=== PATIENT | male | born 1950 | race Caucasian/White ===

== ENCOUNTER 2019-02-10 08:51 | Inpatient (IN) | payer BC, MEDICARE ==
--- NOTE | 2019-02-03 12:52 | HP ---
AMENDED REPORT NOW INCLUDES DESIGNATED COSIGNER - ESIGNED BEFORE ADJUSTMENTS PREOPERATIVE HISTORY AND PHYSICAL: DATE OF ADMISSION: 02/10/19 DATE OF OFFICE VISIT: ATTENDING PHYSICIAN: Dr. Tess Jo.* (DICTATED BY JAMES YOUNG) SURGERY TO BE PERFORMED: Right total knee arthroplasty. CHIEF COMPLAINT: Right knee pain. HISTORY OF PRESENT ILLNESS: Mr. Stevens is a 68-year-old male with over 3 years of increasingly severe right knee pain. He has difficulty walking for more than 1 block. He has difficulty ambulating on stairs and uneven surfaces. Antiinflammatories, rest, and elevation have helped this pain somewhat. He has had cortisone injections and has worn a brace without relief of pain. He now elects to proceed with right total knee arthroplasty. PAST MEDICAL HISTORY: Significant for hypertension, high cholesterol, osteoarthritis, type 2 diabetes, morbid obesity. PAST SURGICAL HISTORY: He has had a TURP, appendectomy, hernia repair, cervical spine surgery, and partial parathyroid removal. MEDICATIONS: 1. Metformin HCl ER 50 mg 2 tablets b.i.d. 2. Humalog KwikPen 200 units per mL t.i.d. with meals. 3. Atorvastatin 20 mg daily. 4. Finasteride 5 mg 1 p.o. daily. 5. Invokana 300 mg 1 p.o. daily. 6. Levemir FlexTouch 100 units per mL, administered 110 units subcu daily. 7. Aspirin 81 mg daily. 8. CoQ10 supplement 100 mg daily. 9. Vitamin D3 at 5000 International Units daily. 10. Irbesartan 300 mg daily. 11. Amlodipine 5 mg p.o. daily. ALLERGIES: To PENICILLIN, which caused rash and hives. FAMILY HISTORY: Significant for hypertension and cancer. 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 Remote history of tobacco use, quit 25 years ago. Denies use of alcohol or recreational drug use. REVIEW OF SYSTEMS: Reviewed with the patient today. Denies recent loss of consciousness, lightheadedness, dizziness, shortness of breath, chest pain, palpitations, gastrointestinal and genitourinary discomfort. No neurologic symptoms. PHYSICAL EXAMINATION GENERAL: The patient is alert and oriented x3, in no acute distress, pleasant, cooperative. VITAL SIGNS: Height 69.50 inches, weight 285. Pulse 80, BP 142/84. HEENT: PERRLA. EOMI. NECK: Supple. Nontender. LUNGS: Clear to auscultation without wheeze. HEART: Regular rate and rhythm. No murmur auscultated. ABDOMEN: Nontender. Normoactive bowel sounds x4 quadrant. EXTREMITIES: Upper extremities within normal limits. Right knee: His skin is clear without excoriations or open lesions. He has a moderate effusion to the right knee, 15 degrees to 120 degrees flexion with patellofemoral crepitus and pain. There is a varus deformity. There is tenderness along the medial joint line. There is no gross varus or valgus instability. Mild pitting edema is noted at the ankle. He has active dorsiflexion and plantar flexion. Full sensation to light touch, 2+ dorsalis pedis pulse. ASSESSMENT: Advanced osteoarthritis of the right knee, medial and patellofemoral compartments. PLAN: The patient has failed conservative management and elects to proceed with right total knee arthroplasty. He is scheduled for surgical intervention with Dr. Tess Jo at [facility] [place] on 02/10/19. He has been cleared by his primary care provider and his kinesiology internship for surgery. He will follow up in the office in roughly 10 to 14 days postoperatively. JAMES YOUNG [id number]/[facility] #: [id number] MTDD
[~2019-02-10 08:51] MED LIST: Acetaminophen TAB* 325 MG PO ONE; Buffered Lidocaine 1% SYRIN* 1 ML/SYRINGE INTRADERM ONE; Famotidine TAB* 20 MG PO ONE; Gabapentin CAP(*) 300 MG PO ONE; Lactated Ringers 1000 ML Bag* 1,000 ML IV SCH; Metoclopramide IV* 5 MG/ML 2 ML VIAL IV SLOW PU ONE; Tranexamic Acid 1,000 MG in NS 0.9% 50 ML* (outpatient use) IV SCH; celeCOXIB CAP* 200 MG PO ONE
[2019-02-10] MEDS ORDERED: Metoclopramide IV* 5 MG/ML 2 ML VIAL ONE (09:24)
[2019-02-10] MEDS ORDERED: Famotidine TAB* 20 MG ONE (09:25)
[2019-02-10] MEDS ORDERED: celeCOXIB CAP* 200 MG ONE (09:25)
[2019-02-10] MEDS ORDERED: Gabapentin CAP(*) 300 MG ONE (09:25)
[2019-02-10] MEDS ORDERED: Acetaminophen TAB* 325 MG ONE (09:25)
[2019-02-10] MEDS ORDERED: Buffered Lidocaine 1% SYRIN* 1 ML/SYRINGE INTRADERM ONE (09:26)
[2019-02-10] MEDS ORDERED: Tranexamic Acid 1,000 MG/10 ML SDV ONE (09:26)
[2019-02-10] MEDS ORDERED: Clindamycin 900 MG IVPREMIX(* 900 MG/50 ML SDV IV ONE (09:26)
[2019-02-10] MEDS ORDERED: fentaNYL* 50 MCG/ML 2 ML VIAL (100 MCG VIAL) ONE (09:40)
[2019-02-10] MEDS ORDERED: Midazolam* 1 MG/ML 2 ML VIAL (2 MG) ONE (09:40)
[2019-02-10] MEDS ORDERED: ROPIVACAINE 5 MG/ML 30 ML BTL (0.5%) ONE ×2 (10:29→10:47)
[2019-02-10] MEDS ORDERED: Lidocaine 1% MPF ** 5 ML VIAL ONE (10:47)
[2019-02-10] MEDS ORDERED: Ropivacaine (OR use only) 2 MG/ML 10 ML ONE (10:47)
[2019-02-10] MEDS ORDERED: KETAMINE HCL* 50 MG/ML 10 ML VIAL ONE (12:00)
[2019-02-10] MEDS ORDERED: Propofol* 10 MG/ML 20 ML BTL ONE ×4 (12:16→13:41)
[2019-02-10] MEDS ORDERED: Ondansetron INJ* 2 MG/ML VIAL IV PRN ×2 (13:05→14:37)
[2019-02-10] MEDS ORDERED: oxyCODONE TAB* 5 MG TAB PO PRN (13:05)
[2019-02-10] MEDS ORDERED: fentaNYL* 50 MCG/ML 2 ML VIAL (100 MCG VIAL) IV PRN (13:05)
[2019-02-10] MEDS ORDERED: Naloxone* 0.4 MG/ML 1 ML VIAL IV PRN (13:05)
[2019-02-10] MEDS ORDERED: Ketorolac INJ* 30 MG/ML 1 ML VIAL IV PRN (13:05)
[2019-02-10] MEDS ORDERED: DiMENhydriNATE IV* 50 MG/ML VIAL IV PUSH PRN (13:05)
[2019-02-10] MEDS ORDERED: HYDROmorphone INJ1* 1 MG/ML SYRINGE IV PRN (13:05)
[2019-02-10] MEDS ORDERED: Acetaminophen IV 1GM/100ML * 1,000 MG/100 ML VIAL IVPB ONE (13:05)
[2019-02-10] MEDS ORDERED: diPHENhydraMINE PO* 25 MG PO PRN (14:37)
[2019-02-10] MEDS ORDERED: Cyclobenzaprine TAB* 10 MG PO PRN (14:37)
[2019-02-10] MEDS ORDERED: Morphine 4 MG/ML VIAL (1 ml) 4 MG/ML VIAL IV PRN (14:37)
[2019-02-10] MEDS ORDERED: diPHENhydraMINE IV* 50 MG/ML 1 ml VIAL (BENADRYL) IV PRN (14:37)
[2019-02-10] MEDS ORDERED: Magnesium Hydroxide LIQ* 30 ML UDC PO PRN (14:37)
[2019-02-10] MEDS ORDERED: Bisacodyl SUPP* 10 MG SUPP PR PRN (14:37)
[2019-02-10] MEDS ORDERED: Polyethylene Glycol 3350* 17 GM PACKET PO PRN (14:37)
[2019-02-10] MEDS ORDERED: oxyCODONE/Acetamin 5/325 MG* TAB PO PRN (14:49)
[2019-02-10] MEDS ORDERED: Lactated Ringers 1000 ML Bag* 1,000 ML IV SCH (15:00)
[2019-02-10] MEDS ORDERED: Dextrose 50% VIAL 50 ml IV PUSH PRN (15:31)
--- NOTE | 2019-02-10 16:46 | PN ---
Progress Note - Progress Note Date of Service: 02/10/19 Note: Pt seen at bedside, pain is well controlled. Denies CP, SOB, dizziness, nausea. Dressing CDI, DF/PF intact, sensation intact to light touch distally.
[2019-02-10] MEDS ORDERED: INSULIN LISPRO SUBCUT SCH (17:00)
[2019-02-10] MEDS: oxyCODONE/Acetamin 5/325 MG* TAB PO PRN (17:22)
[2019-02-10] MEDS: Insulin LISPRO* 1 UNITS UNIT SUBCUT SCH (17:44)
--- NOTE | 2019-02-10 17:58 | OP ---
Operative Report - Blank - Operative Report Date of Operation: 02/10/19 Note: LETTY NASH 1950 Date of Surgery: 02/10/19 Tess Jo MD Hammerer Helper: Kenny RAMIREZ did help throughout the procedure with preparation of the knee, wound retraction, manipulation of the knee, and wound closure. Anesthesiologist: Freddy Weller MD Anesthesia Type: Spinal Preoperative Diagnosis: Right severe degenerative osteoarthritis of the knee Postoperative Diagnosis: As above Procedure Performed: Right Total Knee Arthroplasty Tourniquet time: 54 minutes Complications: None Specimen: Bone and cartilage from the right knee joint sent to pathology. Hardware Used: Cemented Brown [employer] Nephew total knee hardware was used - For the femur a size 7 right oxinium legion posterior stabilized femoral component, for the tibia a size 7 right manjit II tibial baseplate, for the insert a size 9mm 7-8 posterior stabilized articular polyethylene insert, and for the patella a size 35 3-peg all poly patella. Brief History/Indication: LETTY NASH was known in clinic and had a history of severe right knee pain and swelling. He failed conservative treatment with anti- inflammatories, pain pills, intra-articular injections and physical therapy. He elected to undergo right total knee arthroplasty due to continued pain and decreased quality of life. Radiographs showed severe end stage osteoarthritis of the knee with bone on bone contact. Informed consent was obtained from the patient. He understood the risks of surgery included but were not limited to: bleeding, infection, damage to nearby structures, intraoperative fracture, nerve palsy, failure of the hardware, early loosening, knee stiffness or loss of motion, anesthesia complications, stroke, heart attack, blood clot and . He wished to proceed. Intra-Operative Findings: Intraoperatively the patient was noted to have severe loss of cartilage in all 3 compartments of the knee. He had a suprapatellar pouch large loose body and extensive osteophyte formation. Description of the Procedure: LETTY NASH was identified in the preanesthesia unit. His right knee was marked as the correct operative side. Informed consent was signed and placed in the chart. The patient was taken to the operating room and placed under anesthesia without complication. A lucero catheter was placed. A tourniquet was placed on the right thigh. The right lower extremity was prepped and draped in the usual sterile fashion. Preoperative time-out was made to correctly identify the patient, side and site. Appropriate intraoperative antibiotics were given within one hour of incision. Tourniquet was inflated. A midline incision was made and carried sharply down to the extensor mechanism. A new 10 blade was used to make a standard medial parapatellar arthrotomy. The patella was subluxed laterally. Electrocautery was used to dissect soft tissue off the superomedial tibia to the midsagittal plane. The knee was flexed up. The anterior horn of the lateral meniscus and the ACL were sharply incised. A drill was used to enter the distal femur. The intramedullary distal femoral cutting guide was pinned on the distal femur. The oscillating saw was used to make the distal femoral cut. The external rotation guide was pinned on the distal femur and the distal femur was sized to a size 7. The size 7 multi-cutting jig was pinned on the distal femur. The oscillating saw was used to make the appropriate 4 chamfer cuts. Next the PCL was completely released. The extramedullary tibial cutting guide was pinned on the proximal tibia and the oscillating saw was used to make the proximal tibial cut perpendicular to the mechanical axis of the tibia. The bone was carefully removed. The knee was brought out into full extension. The spacer block was placed and had excellent fit with the knee in full extension. The medial and lateral ligaments were well balanced. The flexion and extension gaps were well balanced. The knee was flexed up. Lamina tableau developer was placed both medially and laterally. Any remaining meniscus was removed with electrocautery. Curved osteotome was used to remove any posterior osteophytes. The tibial tray and drop wendy were placed and confirmed a satisfactory tibial cut. The size 7 right femoral trial was impacted onto the distal femur. This trial had excellent fit and stability. The box for the posterior stabilized implant was prepared using a box cut osteotome and a reamer. Next a tibial tray trial and 9 mm insert trial was placed. The knee was taken through a range of motion and had full extension to 130 degrees of flexion. Patellofemoral tracking was satisfactory. The patella was inverted and sized to a size 35. Three peg holes were drilled through the size 35 drill guide. The trial patella was placed and the knee was taken through a range of motion. There was satisfactory patellofemoral tracking. All trials were removed. The tibia was subluxed anteriorly and sized to a size 7. The proximal tibial was prepared with a size 7 keel punch. All bony cut surfaces were irrigated with sterile saline and dried. Final implants were cemented into place starting with the tibia, followed by the femur, and last the patella. A 9 mm insert trial was placed and the knee was brought into full extension. Tourniquet was turned down and the knee was copiously irrigated with sterile saline. Electrocautery was used to obtain meticulous hemostasis. Once the cement had fully cured, the insert trial was removed. Any excess cement was removed from around the hardware and capsule. Final insert chosen was a 9 mm posterior stabilized Manjit II articular insert size 7-8. Stability of the insert was checked and noted to be stable. The extensor mechanism was closed using number 1 vicryls. The rest of the incision was closed in a layered fashion using 0 and 2-0 vicryls. The skin was closed using 3-0 nylon suture. Sterile xeroform, 4x4s and webril were used to cover the incision. Charbel wrap and cold pack were used to cover the dressings. The patients anesthesia was reversed without difficulty. He was taken to the PACU in stable condition. Intended weight-bearing will be as tolerated.
--- NOTE | 2019-02-10 18:22 | CONS ---
CC: Dr. Delatorre; Dr. Jo; JAMES Coelho * CONSULTATION REPORT: DATE OF CONSULT: 02/10/19 PRIMARY CARE PROVIDER: Dr. Delatorre. ORTHOPEDIC SURGEON: Dr. Jo. REQUESTING PROVIDER IN CONSULTATION: JAMES Coelho. ATTENDING PHYSICIAN: Dr. Aranda (dictated by JAMES Vargas). REASON FOR CONSULTATION: Co-medical management. HISTORY OF PRESENT ILLNESS/HOSPITAL COURSE: I refer you to Naomi Max's history and physical dictated on 02/03/19 for full and complete details, but in short, Mr. Stevens is a 68-year-old male with a past medical history of diabetes, hypertension, hyperlipidemia, and osteoarthritis who presented to [facility] today for an elective right total knee arthroplasty having failed conservative therapy. He is seen postoperatively in the PACU. He is complaining of drowsiness and fatigue. He denies chest pain, shortness of breath, vision changes, headache. He denies pain in the knees, stating that he has decreased sensation to bilateral lower extremities due to nerve block. He denies abdominal pain, nausea, vomiting, diarrhea. He denies numbness and tingling in the extremities. PAST MEDICAL HISTORY: 1. Diabetes mellitus. 2. Hypertension. 3. Hyperlipidemia. 4. BPH. 5. Obesity, BMI of 41.3. 6. Osteoarthritis. PAST SURGICAL HISTORY: TURP, appendectomy, hernia repair x2, partial parathyroidectomy, cervical spine. HOME MEDICATIONS: 1. Amlodipine 5 mg p.o. daily. 2. Aspirin 81 mg p.o. daily. 3. Atorvastatin 20 mg p.o. q.p.m. 4. Canagliflozin 300 mg p.o. daily. 5. Vitamin D3 cap 5000 units p.o. daily. 6. Finasteride 5 mg p.o. daily. 7. Insulin detemir 50 units subcu q.a.m., 60 units at bedtime. 8. Insulin lispro sliding scale 16 to 24 units subcu t.i.d. with meals. 9. Irbesartan 300 mg p.o. daily. 10. Metformin 1000 mg p.o. b.i.d. 11. CoQ10 at 100 mg p.o. daily. DRUG ALLERGIES: PENICILLIN, hives. FAMILY HISTORY: Father, hypertension, due to lung cancer. Mother, dementia. Maternal grandmother, [place] at age 60. Paternal grandmother during childbirth. Paternal grandfather, melanoma, brain tumor. SOCIAL HISTORY: The patient states that he quit smoking approximately 25 years ago. Prior to that, he smoked less than a pack per day for approximately 10 years. He does not drink alcohol. He is a food crops farm hand. He lives with his ; he has 4 children and 10 grandchildren. In the event that he is unable to make his own medical decisions, he has appointed his daughter and healthcare proxy, Starr Barba, to be his surrogate decision maker. REVIEW OF SYSTEMS: A 10-point review of systems has been performed and all the pertinent positives and negatives are in the HPI. All other systems are negative. PHYSICAL EXAMINATION: General: Mr. Stevens is a well-developed, well-nourished, obese, older white male who is sitting up in bed. He appears groggy, but is cooperative and appropriate and awake. Vital Signs: Temperature 97.2 temporal , heart rate 67, respiratory rate 17, oxygen saturation 97% on 2 L O2, blood pressure 139/82. HEENT: PERRL. EOMI. Nonicteric sclerae. Hearing grossly intact. Oral mucous membranes are dry. Cardiovascular: Regular rate and rhythm with S1, S2 present without murmurs, rubs, clicks, or gallops. There is no JVD. There is no peripheral edema. Radial and pedal pulses are palpable. Respiratory: Symmetrical chest expansion without use of accessory muscles. Lungs: Clear to auscultation bilaterally without rhonchi, wheezes, or rubs. There is no clubbing or cyanosis distally. Abdomen: Obese. Bowel sounds in all quadrants. The abdomen is soft. There is no tenderness to palpation. Musculoskeletal: The patient is able to move all of his extremities. The right knee has a clean, dry, and intact dressing with cryo unit in place. Neuro : The patient is awake. He is alert and oriented x3 with cranial nerves grossly intact. He again is able to move all of his extremities. He has decreased sensation to bilateral lower extremities. ASSESSMENT AND PLAN: Mr. Stevens is a 68-year-old male with a past medical history of diabetes, hypertension, hyperlipidemia who presented to [facility] today for an elective right total knee arthroplasty. The patient will be admitted inpatient for: 1. Right total knee arthroplasty. Management per orthopedics. 2. Diabetes mellitus. The patient is on detemir 50 a.m., 60 p.m., lispro sliding scale, canagliflozin, metformin at home. His 2 oral medications will be held while he is in the hospital. We will continue his long-acting insulin and lispro sliding scale. 3. Hypertension. Continue home medication, amlodipine. Hold irbesartan at this time. 4. Hyperlipidemia. Continue atorvastatin. 5. BPH. Continue finasteride. 6. DVT prophylaxis. Per orthopedics, apixaban 2.5 mg b.i.d. 7. Code status. Full code. TIME SPENT: Approximately 30 minutes were spent on this admission, greater than half of that time was spent with the patient obtaining history, performing physical, and reviewing the plan of care. The case has been discussed with my attending, Dr. Aranda, who is in agreement with the plan of care. JAMES VARGAS [id number]/[facility] #: [id number] MTDDarren
[2019-02-10] MEDS: Acetaminophen TAB* 325 MG PO SCH (18:46)
[2019-02-10] MEDS: traMADol TAB* 50 MG PO PRN (18:46)
[2019-02-10] MEDS: Atorvastatin* 20 MG TAB PO SCH (18:47)
[2019-02-10] MEDS: Clindamycin 600 MG IVPREMIX(* 600 MG/50 ML SDV IV SCH (20:14)
[2019-02-10] MEDS: Docusate CAP* 100 MG PO SCH (20:15)
[2019-02-10] MEDS: Magnesium Hydroxide LIQ* 30 ML UDC PO SCH (20:16)
[2019-02-10] MEDS ORDERED: Insulin GLARGINE(*) 1 UNITS UNIT SUBCUT SCH (21:00)
[2019-02-10] MEDS ORDERED: metFORMIN* 500 MG TAB PO SCH (21:00)
[2019-02-10] MEDS: Insulin GLARGINE(*) 1 UNITS UNIT SUBCUT SCH (21:42)
[2019-02-10] MEDS: oxyCODONE TAB* 5 MG TAB PO PRN (21:43)
[2019-02-11] MEDS: oxyCODONE TAB* 5 MG TAB PO PRN ×3 (01:57→12:20)
[2019-02-11] MEDS: Acetaminophen TAB* 325 MG PO SCH ×3 (01:57→17:45)
[2019-02-11] MEDS: Clindamycin 600 MG IVPREMIX(* 600 MG/50 ML SDV IV SCH ×2 (04:16→11:44)
[2019-02-11] MEDS: traMADol TAB* 50 MG PO PRN ×3 (04:23→16:43)
[2019-02-11 06:01] LABS: Hematocrit 40 % (42-52); Hemoglobin 14.1 g/dL (14.0-18.0); Mean Platelet Volume 6.7 fL (7.4-10.4); Platelet Count 218 10^3/uL (150-450)
[2019-02-11 06:21] LABS: BUN/Creatinine Ratio 26.5 (8-20); Calcium 9.8 mg/dL (8.6-10.3); EGFR African American 141.2 (>60); EGFR Non-African American 116.7 (>60); Potassium 4.1 mmol/L (3.5-5.0)
[2019-02-11] MEDS: Insulin LISPRO* 1 UNITS UNIT SUBCUT SCH ×3 (08:18→16:40)
[2019-02-11] MEDS ORDERED: Canagliflozin (NF) 300 MG TAB PO SCH (09:00)
[2019-02-11] MEDS ORDERED: IRBESARTAN 300 MG PO SCH (09:00)
[2019-02-11] MEDS: Docusate CAP* 100 MG PO SCH ×2 (09:40→20:23)
[2019-02-11] MEDS: Apixaban* 2.5 MG TAB PO SCH ×2 (09:41→20:22)
[2019-02-11] MEDS: amLODIPine TAB* 5 MG PO SCH (09:41)
[2019-02-11] MEDS: Magnesium Hydroxide LIQ* 30 ML UDC PO SCH ×2 (09:41→20:22)
[2019-02-11] MEDS: Finasteride TAB* 5 MG PO SCH (09:41)
[2019-02-11] MEDS: Cholecalciferol TAB* 1000 UNITS PO SCH (09:41)
[2019-02-11] MEDS: Insulin GLARGINE(*) 1 UNITS UNIT SUBCUT SCH ×2 (09:41→20:23)
--- NOTE | 2019-02-11 11:13 | PN ---
Progress Note - Progress Note Date of Service: 02/11/19 SOAP: Subjective: []Patient seen and examined at bedside. Pain is well controlled, thigh is reported as sore. Denies CP, SOB, dizziness, nausea. Upon standing he felt lightheaded this morning which resolved with rest, he was nauseous with breakfast which has also since resolved. Objective: []General: Appears well, NAD RLE: Right knee dressing CDI, thigh is soft, DF/PF intact, DP2+, sensation intact to light touch distally. Calves supple and nontender without erythema, edema or palpable cords Assessment: []POD 1 sp RTK Plan: []WBAT PT/OT Eliquis 2.5 mg po BID x 30 days post op Encouraged IS Massage ordered from [facility] Anticipate home tomorrow Vital Signs Temp 98.4 F 02/11/19 07:49 Pulse 88 02/11/19 07:49 Resp 18 02/11/19 10:33 BP 110/55 02/11/19 07:49 Pulse Ox 91 02/11/19 07:49 Intake & Output 02/10/19 02/11/19 02/11/19 18:59 06:59 18:59 Intake Total 700 600 Output Total 2725 225 Balance -2024 375 Weight 279 lb 12.8 oz Intake: Oral 700 600 Output: Urine 225 Montiel 2725 Other: Estimated Void Large # Voids 1 Laboratory Last Values Hgb 14.1 g/dL (14.0-18.0) 02/11/19 05:54 Hct 40 % (42-52) L 02/11/19 05:54 Plt Count 218 10^3/uL (150-450) 02/11/19 05:54 MPV 6.7 fL (7.4-10.4) L 02/11/19 05:54 Sodium 136 mmol/L (135-145) 02/11/19 05:54 Potassium 4.1 mmol/L (3.5-5.0) 02/11/19 05:54 Chloride 103 mmol/L (101-111) 02/11/19 05:54 Carbon Dioxide 24 mmol/L (22-32) 02/11/19 05:54 Anion Gap 9 mmol/L (2-11) 02/11/19 05:54 BUN 18 mg/dL (6-24) 02/11/19 05:54 Creatinine 0.68 mg/dL (0.67-1.17) 02/11/19 05:54 Est GFR ( Amer) 141.2 (>60) 02/11/19 05:54 Est GFR (Non-Af Amer) 116.7 (>60) 02/11/19 05:54 BUN/Creatinine Ratio 26.5 (8-20) H 02/11/19 05:54 Glucose 191 mg/dL (70-100) H 02/11/19 05:54 POC Glucose (mg/dL) 124 mg/dL (70-100) H 02/10/19 17:28 Calcium 9.8 mg/dL (8.6-10.3) 02/11/19 05:54
--- NOTE | 2019-02-11 13:34 | PN ---
Subjective Date of Service: 02/11/19 Interval History: Pt is doing well today. He rates his pain at 3/10. He notes he has been up with PT 2 times and it was "fair." He has less pain with straightening. He states he had a headache yesterday, but this is resolved. He is urinating well and sensation has returned to the LE. He denies CP, SOB, abd pain, n/v/d, calf tenderness. Objective Active Medications: Acetaminophen (Tylenol Tab*) 975 mg PO Q8H JULIUS Amlodipine Besylate (Norvasc Tab*) 5 mg PO QAM JULIUS Apixaban (Eliquis*) 2.5 mg PO BID JULIUS Atorvastatin Calcium (Lipitor*) 20 mg PO QPM JULIUS Bisacodyl (Dulcolax Supp*) 10 mg CA DAILY PRN Cholecalciferol (Vitamin D Tab*) 5,000 units PO QAM JULIUS Cyclobenzaprine HCl (Flexeril Tab*) 10 mg PO TID PRN Dextrose (Dextrose 50% Vial 50 Ml*) 25 ml IV PUSH .FOR FS < 60 - SS PRN Diphenhydramine HCl (Benadryl Iv*) 25 mg IV Q6H PRN Diphenhydramine HCl (Benadryl Po*) 25 mg PO Q6H PRN Docusate Sodium (Colace Cap*) 100 mg PO BID JULIUS Finasteride (Proscar Tab*) 5 mg PO QAM JULIUS Lactated Ringer's (Lactated Ringers 1000 Ml Bag*) 1,000 mls @ 100 mls/hr IV PER RATE JULIUS Insulin Glargine (Lantus(*)) 40 units SUBCUT QAM JULIUS Insulin Glargine (Lantus(*)) 24 units SUBCUT BEDTIME JULIUS Insulin Human Lispro (Humalog*) 0 units SUBCUT AC JULIUS; Protocol Lactulose (Lactulose*) 30 ml PO Q6H PRN Magnesium Hydroxide (Milk Of Magnesia Liq*) 30 ml PO BID JULIUS Magnesium Hydroxide (Milk Of Magnesia Liq*) 30 ml PO Q6H PRN Morphine Sulfate (Morphine 4 Mg/Ml Vial (1 Ml)) 4 mg IV Q2H PRN Ondansetron HCl (Zofran Inj*) 4 mg IV Q6H PRN Oxycodone HCl (Roxycodone Tab*) 5 mg PO Q4H PRN Oxycodone/Acetaminophen (Percocet 5/325 Tab*) 2 tab PO Q3H PRN Oxycodone/Acetaminophen (Percocet 5/325 Tab*) 1 tab PO Q3H PRN Polyethylene Glycol/Electrolytes (Miralax*) 17 gm PO DAILY PRN Tramadol HCl (Ultram*) 50 mg PO Q6H PRN Vital Signs: Temp Pulse Resp BP Pulse Ox 98.4 F 85 18 133/73 93 02/11/19 11:57 02/11/19 11:57 02/11/19 12:20 02/11/19 11:57 02/11/19 11:57 Oxygen Devices in Use Now: None Appearance: Pt is sitting in chair having lunch with LE at ground. He is comfortable, appears to be in no acute distress. Eyes: No Scleral Icterus, PERRLA Ears/Nose/Mouth/Throat: NL Teeth, Lips, Gums, Clear Oropharnyx, Mucous Membranes Moist Neck: NL Appearance and Movements; NL JVP, Trachea Midline Respiratory: Symmetrical Chest Expansion and Respiratory Effort, Clear to Auscultation Cardiovascular: NL Sounds; No Murmurs; No JVD, RRR Abdominal: NL Sounds; No Tenderness; No Distention, No Hepatosplenomegaly Extremities: No Clubbing, Cyanosis, - - 1+ pitting edema b/l LE edema. R knee with CDI dressing; cryo unit in place. Sensation, distal pulses intact. Neurological: Alert and Oriented x 3 Result Diagrams: 02/11/19 05:54 02/11/19 05:54 Assess/Plan/Problems-Billing Assessment: 68 yom PMHx HTN, DM, HLD, obesity presents for elective RTKA. - Patient Problems (1) Status post total right knee replacement Comment: -POD1 -Management per ortho team (2) Diabetes Comment: -BG controlled -Glargine 40 a.m., 24 p.m. -Lispro ss -Holding metformin, canagliflozin; may restart with d/c (3) Hypertension Comment: -Well controlled -Continue amlodipine -Continue to hold irbesartan (4) Hyperlipidemia Comment: -Continue home atorvastatin (5) BPH (benign prostatic hyperplasia) Comment: -Continue finasteride (6) DVT prophylaxis Comment: -Per ortho: apixiban (7) Full code status Status and Disposition: Inpatient. Discharge per ortho.
[2019-02-11] MEDS: Atorvastatin* 20 MG TAB PO SCH (17:45)
[2019-02-11] MEDS: oxyCODONE/Acetamin 5/325 MG* TAB PO PRN (22:55)
[2019-02-12] MEDS: Acetaminophen TAB* 325 MG PO SCH (02:50)
[2019-02-12 06:07] LABS: Hematocrit 39 % (42-52); Hemoglobin 13.9 g/dL (14.0-18.0); Mean Platelet Volume 7.4 fL (7.4-10.4); Platelet Count 215 10^3/uL (150-450)
[2019-02-12] MEDS: oxyCODONE TAB* 5 MG TAB PO PRN ×2 (06:47→11:08)
[2019-02-12 07:34] VITALS: BP 133/86
[2019-02-12] MEDS: Insulin LISPRO* 1 UNITS UNIT SUBCUT SCH (08:05)
[2019-02-12] MEDS: Insulin GLARGINE(*) 1 UNITS UNIT SUBCUT SCH (08:05)
[2019-02-12] MEDS: traMADol TAB* 50 MG PO PRN (08:54)
[2019-02-12] MEDS: Docusate CAP* 100 MG PO SCH (08:54)
[2019-02-12] MEDS: Finasteride TAB* 5 MG PO SCH (08:55)
[2019-02-12] MEDS: Apixaban* 2.5 MG TAB PO SCH (08:55)
[2019-02-12] MEDS: amLODIPine TAB* 5 MG PO SCH (08:55)
[2019-02-12] MEDS: Cholecalciferol TAB* 1000 UNITS PO SCH (08:55)
[2019-02-12] MEDS: Magnesium Hydroxide LIQ* 30 ML UDC PO SCH (08:55)
--- NOTE | 2019-02-12 10:21 | PN ---
Progress Note - Progress Note Date of Service: 02/12/19 SOAP: Subjective: []Pt seen at bedside. He feels well without chest pain, shortness of breath, palpitations, abd pain, nausea or dizziness. His pain is well controlled and he desires DC home. Objective: []General: Appears well, NAD RLE: Right knee dressing changed by Dr Jo this morning, dressing remains CDI , thigh is soft, DF/PF intact, DP2+, sensation intact to light touch distally. Calves supple and nontender without erythema, edema or palpable cords Assessment: []POD 2 sp RTK Plan: []WBAT PT/OT Eliquis 2.5 mg po BID x 30 days post op Encouraged IS Massage ordered from [facility] Anticipate home today, will monitor HR which is in the 90s, though it was 98bpm at preop testing and radial pulse regular. Vital Signs Temp 97.8 F 02/12/19 07:33 Pulse 97 02/12/19 08:59 Resp 18 02/12/19 09:21 BP 133/86 02/12/19 07:33 Pulse Ox 96 02/12/19 08:00 Intake & Output 02/11/19 02/12/19 02/12/19 18:59 06:59 18:59 Intake Total 1994 600 480 Output Total 750 2200 725 Balance 1244 -1600 -245 Intake: IV Fluids 884 LR 884 Medicated IV 110 Clindamycin 110 Oral 1000 600 480 Output: Urine 750 2200 725 Other: Estimated Void Large # Voids 1 Laboratory Last Values Hgb 13.9 g/dL (14.0-18.0) L 02/12/19 05:24 Hct 39 % (42-52) L 02/12/19 05:24 Plt Count 215 10^3/uL (150-450) 02/12/19 05:24 MPV 7.4 fL (7.4-10.4) 02/12/19 05:24 Sodium 136 mmol/L (135-145) 02/11/19 05:54 Potassium 4.1 mmol/L (3.5-5.0) 02/11/19 05:54 Chloride 103 mmol/L (101-111) 02/11/19 05:54 Carbon Dioxide 24 mmol/L (22-32) 02/11/19 05:54 Anion Gap 9 mmol/L (2-11) 02/11/19 05:54 BUN 18 mg/dL (6-24) 02/11/19 05:54 Creatinine 0.68 mg/dL (0.67-1.17) 02/11/19 05:54 Est GFR ( Amer) 141.2 (>60) 02/11/19 05:54 Est GFR (Non-Af Amer) 116.7 (>60) 02/11/19 05:54 BUN/Creatinine Ratio 26.5 (8-20) H 02/11/19 05:54 Glucose 191 mg/dL (70-100) H 02/11/19 05:54 POC Glucose (mg/dL) 124 mg/dL (70-100) H 02/10/19 17:28 Calcium 9.8 mg/dL (8.6-10.3) 02/11/19 05:54
--- NOTE | 2019-02-12 10:43 | DS ---
Orthopedic Discharge Summary - Discharge Summary Date of Admission:02/10/19 Date of Discharge: 02/12/19 Date of Surgery: 02/10/19 Attending Orthopedic Provider: Dr Jo Pre-operative Diagnosis: right knee osteoarthritis Operative Procedure: right total knee replacement Disposition of Patient: home Condition of Patient: stable History: LETTY NASH is a 68 year old M with years of increasingly severe right knee pain. Patient has failed conservative management and has elected to undergo a right total knee replacement Hospital Course: LETTY was admitted to [facility] on 02/10/19. Patient underwent a right total knee replacement without complication followed by a brief recovery in PACU and transfer to the Short Stay Surgical Unit in stable condition. Our hospitalist service, physical therapy and occupational therapy also participated in this patients care. Post-op day 1: patient was alert and in no acute distress. Dressing was clean, dry and intact. Operative extremity dorsiflexion and plantarflexion intact, sensation intact to light touch distally, DP2+. Post-op day two: dressing was changed, incision was clean , dry and intact. Patient was deemed to be medically and orthopedically stable for discharge. Physical therapy goals were met. Home Medications Medication Instructions Recorded Confirmed Type Aspirin [Aspirin EC] 81 mg PO QPM 02/02/19 02/02/19 History Atorvastatin* [Lipitor 20 MG*] 20 mg PO QPM 02/02/19 02/10/19 History Canagliflozin (NF) [Invokana (NF)] 300 mg PO QAM 02/02/19 02/10/19 History Cholecalciferol CAP/TAB(NF) 5,000 unit PO QAM 02/02/19 02/10/19 History [Vitamin D3 CAP/TAB (NF)] Finasteride TAB* [Proscar TAB*] 5 mg PO QAM 02/02/19 02/10/19 History Insulin Detemir [Levemir Flextouch] 50 units SUBCUT QAM 02/02/19 02/10/19 History Insulin Detemir [Levemir Flextouch] 60 units SUBCUT BEDTIME 02/02/19 02/10/19 History Insulin Lispro [Humalog Kwikpen 16 - 24 units SUBCUT TID WITH MEALS 02/02/19 History U-200] Irbesartan 300 mg PO QAM 02/02/19 02/10/19 History Ubidecarenone [Co Q-10] 100 mg PO QPM 02/02/19 02/10/19 History amLODIPine TAB* [Norvasc 5 mg TAB*] 5 mg PO QAM 02/02/19 02/10/19 History metFORMIN* [Glucophage 500 MG TAB 2 tab PO BID 02/02/19 02/10/19 History *] Acetaminophen TAB* [Tylenol TAB*] 975 mg PO Q8H tab 02/12/19 Rx Apixaban* [Eliquis*] 2.5 mg PO BID #60 tab 02/12/19 Rx Docusate CAP* [Colace Cap*] 100 mg PO BID PRN #90 cap 02/12/19 Rx oxyCODONE TAB* [Roxycodone TAB 5 5 mg PO Q4H PRN #20 tab MDD 4 02/12/19 Rx mg*] traMADol TAB* [Ultram*] 50 mg PO Q6H PRN #56 tab MDD 8 02/12/19 Rx Discharge Instructions following Orthopedic Surgery: Activity: * Weight Bearing as tolerated * Continue physical therapy and occupational therapy exercises as shown * Continue home physical therapy, may transition to outpatient therapy when ready per home PT Wound care: * OK to shower on post-op day 3 (Saturday). No bathing, swimming, or submerging wound. * Use gentle soap, pat dry. Cover with gauze, ANGUS wrap and tape. * Visiting home nurse to do wound checks. Call Orthopedic office for: * Increased drainage * Redness * Increased pain * Fever Go to ER with shortness of breath or chest pain. Diet: * Regular diet * Increase fluids and fiber to prevent constipation. * Continue to use stool softeners, call office if no bowel motion within 48 hours. Medications See Home Medication List in your packet for medications that you should take after discharge. DVT Prophylaxis: Eliquis Dosin.5 mg, 1 tab every 12 hours x 30 days. This medication increases bleeding tendency Pain Control: Tramadol 50 mg. take 1 tab every 6 hours as needed for moderate pain. May take 2 tabs every 6 hours for more severe pain but not to exceed a total of 8 tabs in one day. Hold for sedation. Wean off as soon as pain allows Supplement pain control with over the counter Tylenol (acetaminophen). Maximum daily dose of Tylenol is 4000 mg from all sources. Oxycodone 5 mg tabs 1 tab every 4 hours as needed for severe breakthrough pain now controlled with tylenol and tramadol. May use up to 4 tabs in a day. Hold for sedation. Wean off as soon as pain allows. Antibiotics are required prior to any dental work. FOLLOW UP: Follow up with [Sandro] Within 10-14 days, call for appointment Please call our office with any questions or concerns ([phone])
--- NOTE | 2019-02-13 09:38 | PN ---
Progress Note - Progress Note Date of Service: 02/13/19 Note: Pt called stating that he has urinary frequency, burning with urination since discharge. He had a Montiel in during surgery. will start Cefdinir and call it in to [facility] outpatient pharmacy. UA plus cx script sent to pt.
== END 2019-02-12 11:50 | disposition home or self-care (01) | DRG 302 ==
LOC: AA 08:51 → SSU 16:40
PROVIDERS: ADMIT Orthopaedic Surgery Adult Reconstructive Orthopaedic Surgery; ATTEND Orthopaedic Surgery Adult Reconstructive Orthopaedic Surgery
PROC: 0SRC069 Replacement of Right Knee Joint with Oxidized Zirconium on Polyethylene Synthetic Substitute, Cemented, Open Approach (ICD-10-PCS; principal; 2019-02-10 11:30)
DX: M17.11 Unilateral primary osteoarthritis, right knee (principal); Z68.41 Body mass index [BMI] 40.0-44.9, adult; E66.01 Morbid (severe) obesity due to excess calories; I10 Essential (primary) hypertension; E78.00 Pure hypercholesterolemia, unspecified; E11.9 Type 2 diabetes mellitus without complications; M25.761 Osteophyte, right knee; E78.5 Hyperlipidemia, unspecified; N40.0 Benign prostatic hyperplasia without lower urinary tract symptoms; R35.0 Frequency of micturition; Z79.84 Long term (current) use of oral hypoglycemic drugs; Z79.82 Long term (current) use of aspirin; Z79.4 Long term (current) use of insulin; Z79.899 Other long term (current) drug therapy; Z88.0 Allergy status to penicillin; Z82.49 Family history of ischemic heart disease and other diseases of the circulatory system; Z80.1 Family history of malignant neoplasm of trachea, bronchus and lung; Z80.8 Family history of malignant neoplasm of other organs or systems; Z87.891 Personal history of nicotine dependence
CPT/HCPCS: 36415; 62323; 80048; 85014; 85018; 85049; A9270-GY; C1776; G8978-GP-CJ; G8979-GP-CI; J2250; J2704; J2765; J2795; J3010